=== PATIENT | male | born 1980 | race Caucasian/White ===

== ENCOUNTER 2024-04-14 04:20 | Day surgery (SDC) | payer OTHER ==
[2024-04-11 09:38] VITALS: BMI 25.9
[2024-04-14] MEDS ORDERED: MIDAZOLAM HCL 2 MG/2 ML SINGLE DOSE VIAL ONE (16:05)
[2024-04-14 17:24] VITALS: BP 117/75; PULSE 70; RESP 18; TEMP 97.3
== END 2024-04-14 17:32 | disposition home or self-care (01) ==
LOC: JASU-SURG 04:20
PROVIDERS: ATTEND Urology
PROC: 0TF3XZZ Fragmentation in Right Kidney Pelvis, External Approach (ICD-10-PCS; principal; 2024-04-14 16:11)
DX: N20.0 Calculus of kidney (principal)